=== PATIENT | female | born 1980 | race Caucasian/White ===

== ENCOUNTER 2018-05-29 20:46 | Emergency (ER) | payer BC, OTHER ==
[2018-05-29] MEDS ORDERED: NA CHLORIDE 0.9% 1,000 ML ONE (21:18)
[2018-05-29 21:39] LABS: Absolute Lymphocytes (CBC) 1.6 K/uL (0.7-4.9); Absolute Monocytes 0.5 K/uL (0.1-1.3); Absolute Neutrophil 6.1 K/uL (1.8-8.0); Basophils % 0.5 % (0-1.3); Eosinophils % 0.9 % (0-4.4); Hematocrit 37.3 % (36.0-45.0); Lymphocytes % 19.5 % (15.3-44.8); MCH 26.4 pg (27.0-35.0); MCV 80.4 fL (80-100); MPV 6.9 fL (7.6-11.3); Monocytes % 5.7 % (3.3-12.3); RBC Red Blood Cell Count 4.64 M/uL (3.86-4.86)
[2018-05-29 21:51] LABS: BUN Blood Urea Nitrogen 8 mg/dL (7-18); Bicarbonate 25 mmol/L (21-32); Glucose Level 161 mg/dL (74-106); Potassium 4.1 mmol/L (3.5-5.1); Sodium Level 139 mmol/L (136-145)
[2018-05-29 21:57] LABS: Urine Blood TRACE (NEG); Urine Glucose 2+ (NEG); Urine Protein NEGATIVE (NEG); Urine Specific Gravity 1.025 (1.005-1.030)
[2018-05-30 00:26] LABS: Urine Specific Gravity 1.025 (1.005-1.030)
[2018-05-30 00:30] LABS: Urine Bacteria >50 /HPF (<20); Urine Culture Reflex Order NOT NEEDED; Urine RBC <5 /HPF (NONE SEEN)
--- NOTE | 2018-05-30 01:43 | EDPHYS ---
Physician Documentation [facility] Name: Vivi Leslie Age: 37 yrs Sex: Female : 1980 Arrival Date: 05/29/2018 Time: 20:52 Bed 25 Private MD: ED Physician Rancho Little HPI: 05/29 21:09 This 37 yrs old Female presents to ER via EMS with unknown complaint. pkl 21:09 The patient presents with decreased mental status. Onset: The symptoms/episode pkl began/occurred just prior to arrival. Possible causes: low blood sugar. Associated signs and symptoms: Pertinent positives: diaphoresis. Patient is insulin dependent diabetic. Started on keto diet about 2 weeks ago without adjusting her insulin dosage.. 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 unrecalled lmp mg2 Historical: - Allergies: 05/29 21:07 Betadine; mg2 21:07 Phenergan; mg2 21:07 Macrodantin; mg2 - Home Meds: 21:07 atorvastatin 10 mg Oral tab 1 tab once daily [Active]; ferrous sulfate 325 mg (65 mg mg2 iron) Oral tab [Active]; gemfibrozil 600 mg Oral tab 1 tab 2 times per day [Active]; Lactulose Oral [Active]; lisinopril 2.5 mg Oral tab 1 tab once daily [Active]; metoprolol tartrate 25 mg Oral tab 1 tab once daily [Active]; Novolog 100 unit/mL Sub-Q soln [Active]; pantoprazole 40 mg Oral TbEC 1 tab once daily [Active]; Tradjenta 5 mg Oral tab 1 tab once daily [Active]; venlafaxine 75 mg Oral cp24 1 cap once daily [Active]; - PMHx: 21:07 Anemia; Diabetes - IDDM; Depression; Hyperlipidemia; GERD; scoliosis; Spinabifida; mg2 Hypertension; - PSHx: 21:07 back surgery; vp of global marketing shunt; bladder reroute; mg2 - Immunization history:: Flu vaccine is up to date. - Social history:: Smoking status: Patient/guardian denies using tobacco, Patient/guardian denies using alcohol, street drugs, IV drugs. - Ebola Screening: : No symptoms or risks identified at this time. ROS: 21:09 Eyes: Negative for injury, pain, redness, and discharge, ENT: Negative for injury, pkl pain, and discharge, Neck: Negative for injury, pain, and swelling, Cardiovascular: Negative for chest pain, palpitations, and edema, Respiratory: Negative for shortness of breath, cough, wheezing, and pleuritic chest pain, Abdomen/GI: Negative for abdominal pain, nausea, vomiting, diarrhea, and constipation, Back: Negative for injury and pain, : Negative for injury, bleeding, discharge, and swelling, MS/Extremity: Negative for injury and deformity. 21:09 Skin: Positive for diaphoresis. 21:09 Neuro: Positive for altered mental status. Exam: 21:09 Head/Face: Normocephalic, atraumatic. Eyes: Pupils equal round and reactive to light, pkl extra-ocular motions intact. Lids and lashes normal. Conjunctiva and sclera are non-icteric and not injected. Cornea within normal limits. Periorbital areas with no swelling, redness, or edema. ENT: Nares patent. No nasal discharge, no septal abnormalities noted. Tympanic membranes are normal and external auditory canals are clear. Oropharynx with no redness, swelling, or masses, exudates, or evidence of obstruction, uvula midline. Mucous membranes moist. Neck: Trachea midline, no thyromegaly or masses palpated, and no cervical lymphadenopathy. Supple, full range of motion without nuchal rigidity, or vertebral point tenderness. No Meningismus. Chest/axilla: Normal chest wall appearance and motion. Nontender with no deformity. No lesions are appreciated. Cardiovascular: Regular rate and rhythm with a normal S1 and S2. No gallops, murmurs, or rubs. Normal PMI, no JVD. No pulse deficits. Respiratory: Lungs have equal breath sounds bilaterally, clear to auscultation and percussion. No rales, rhonchi or wheezes noted. No increased work of breathing, no retractions or nasal flaring. Abdomen/GI: Soft, non-tender, with normal bowel sounds. No distension or tympany. No guarding or rebound. No evidence of tenderness throughout. Back: No spinal tenderness. No costovertebral tenderness. Full range of motion. Skin: Warm, dry with normal turgor. Normal color with no rashes, no lesions, and no evidence of cellulitis. MS/ Extremity: Pulses equal, no cyanosis. Neurovascular intact. Full, normal range of motion. Neuro: Awake and alert, GCS 15, oriented to person, place, time, and situation. Cranial nerves II-XII grossly intact. Motor strength 5/5 in all extremities. Sensory grossly intact. Cerebellar exam normal. Normal gait. Vital Signs: 21:08 BP 111 / 94; Pulse 85; Resp 18; Temp 94.6(O); Pulse Ox 100% on R/A; Weight 52.16 kg; mg2 Height 4 ft. 7 in. (139.70 cm); Pain 0/10; 22:24 BP 120 / 72; Pulse 88; Resp 18; Pulse Ox 100% on R/A; Pain 0/10; mg2 05/30 00:07 BP 122 / 81; Pulse 89; Resp 18; Temp 98.1; Pulse Ox 100% ; Pain 0/10; mg2 00:46 BP 103 / 68; Pulse 88; Resp 18; Pulse Ox 100% on R/A; Pain 0/10; mg2 01:33 BP 103 / 87; Pulse 89; Resp 18; Pulse Ox 100% on R/A; Pain 0/10; mg2 05/29 21:08 Body Mass Index 26.73 (52.16 kg, 139.70 cm) mg2 MDM: 05/29 20:53 Patient medically screened. pkl 05/30 01:42 Data reviewed: vital signs, nurses notes, lab test result(s). pkl 01:42 Patient medically screened. pkl 05/29 21:09 Order name: CBC with Diff; Complete Time: 22:54 pkl 05/29 21:09 Order name: Chem 7; Complete Time: 22:54 pkl 05/29 21:09 Order name: Hemoglobin A1c pkl 05/29 21:43 Order name: Urine Dipstick--Ancillary (enter results); Complete Time: 22:54 rg2 05/29 22:55 Order name: Urine Culture rg2 05/29 22:55 Order name: Urine Microscopic Only; Complete Time: 01:44 rg2 05/29 21:09 Order name: Accucheck Blood Glucose: q hourly; Complete Time: 21:12 pkl 05/29 21:15 Order name: EKG; Complete Time: 21:15 pkl 05/29 23:35 Order name: Urine --Ancillary (enter results); Complete Time: 01:44 rg2 Administered Medications: 05/29 21:23 Drug: NS 0.9% 1000 ml Route: IV; Rate: 100 ml/hr; Site: left forearm; mg2 05/30 02:03 Follow up: Response: No adverse reaction; IV Status: Completed infusion mg2 02:03 Drug: Bactrim (160 mg-800 mg (DS) 1 tablet Route: PO; mg2 02:08 Follow up: Response: No adverse reaction; Medication administered at discharge. mg2 Point of Care Testing: Blood Glucose: 05/29 21:23 Blood Glucose: 258 mg/dL; mg2 23:30 Blood Glucose: 85 mg/dL; mg2 05/30 00:30 Blood Glucose: 105 mg/dL; mg2 01:33 Blood Glucose: 133 mg/dL; mg2 Ranges: Critical Glucose Levels:Adult <50 mg/dl or >400 mg/dl <40 mg/dl or >180 mg/dl Disposition: 05/30/18 01:42 Discharged to Home. Impression: Hypoglycemia. Urinary tract infection. - Condition is Stable. - Prescriptions for Bactrim DS 800- 160 mg Oral Tablet - take 1 tablet by ORAL route every 12 hours for 7 days; 14 tablet. - Medication Reconciliation Form, Thank You Letter, Antibiotic Education, Prescription Opioid Use form. - Follow up: Private Physician; When: 1 - 2 days; Reason: Re-evaluation by your physician. - Problem is new. - Symptoms have improved. 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 Impression: Hypoglycemia. Condition is pkl Stable. Forms are Medication Reconciliation Form, Thank You Letter, Antibiotic Education, Prescription Opioid Use. Follow up: Private Physician; When: 1 - 2 days; Reason: Re-evaluation by your physician. Problem is new. Symptoms have improved. pkl 02:10 01:47 05/30/2018 01:42 Discharged to Home. Impression: Hypoglycemia. Urinary tract mg2 infection. Condition is Stable. Forms are Medication Reconciliation Form, Thank You Letter, Antibiotic Education, Prescription Opioid Use. Follow up: Private Physician; When: 1 - 2 days; Reason: Re-evaluation by your physician. Problem is new. Symptoms have improved. pkl
--- NOTE | 2018-05-30 01:43 | ER ---
Nurse's Notes [facility] Name: Vivi Leslie Age: 37 yrs Sex: Female : 1980 Arrival Date: 05/29/2018 Time: 20:52 Bed 25 Private MD: Diagnosis: Hypoglycemia. Urinary tract infection Presentation: 05/29 20:53 Presenting complaint: EMS states: she is on keto diet for the past 2 weeks and just mg2 this evening \T\ 1900H after dinner she was having slurred speech, facial drooping, cool clammy skin, BGL - 34 mg/dl and 200 ml of D10 water was infused and ugar went up to 363 mg/dl. \T\ 2032H last BGL was 299 mg/dl. Transition of care: patient was not received from another setting of care. Onset of symptoms was May 29, 2018. Risk Assessment: Do you want to hurt yourself or someone else? Patient reports no desire to harm self or others. Initial Sepsis Screen: Does the patient meet any 2 criteria? No. Patient's initial sepsis screen is negative. Does the patient have a suspected source of infection? No. Patient's initial sepsis screen is negative. Care prior to arrival: Medication(s) given: D10 water. 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/30 02:09 unrecalled lmp mg2 Historical: - Allergies: 05/29 21:07 Betadine; mg2 21:07 Phenergan; mg2 21:07 Macrodantin; mg2 - Home Meds: 21:07 atorvastatin 10 mg Oral tab 1 tab once daily [Active]; ferrous sulfate 325 mg (65 mg mg2 iron) Oral tab [Active]; gemfibrozil 600 mg Oral tab 1 tab 2 times per day [Active]; Lactulose Oral [Active]; lisinopril 2.5 mg Oral tab 1 tab once daily [Active]; metoprolol tartrate 25 mg Oral tab 1 tab once daily [Active]; Novolog 100 unit/mL Sub-Q soln [Active]; pantoprazole 40 mg Oral TbEC 1 tab once daily [Active]; Tradjenta 5 mg Oral tab 1 tab once daily [Active]; venlafaxine 75 mg Oral cp24 1 cap once daily [Active]; - PMHx: 21:07 Anemia; Diabetes - IDDM; Depression; Hyperlipidemia; GERD; scoliosis; Spinabifida; mg2 Hypertension; - PSHx: 21:07 back surgery; svp research and strategic analysis shunt; bladder reroute; mg2 - Immunization history:: Flu vaccine is up to date. - Social history:: Smoking status: Patient/guardian denies using tobacco, Patient/guardian denies using alcohol, street drugs, IV drugs. - Ebola Screening: : No symptoms or risks identified at this time. Screenin:09 Abuse screen: Denies threats or abuse. Denies injuries from another. Nutritional mg2 screening: on keto diet. Tuberculosis screening: No symptoms or risk factors identified. Fall Risk Secondary diagnosis (15 points) impaired mobility, IV access (20 points). Assessment: 21:10 General: Appears in no apparent distress. comfortable, Behavior is calm, cooperative. mg2 Pain: Denies pain. Neuro: Level of Consciousness is awake, alert, obeys commands, Oriented to person, place, time, situation. Cardiovascular: Capillary refill < 3 seconds Patient's skin is warm and dry. Respiratory: Airway is patent Respiratory effort is even, unlabored, Respiratory pattern is regular, symmetrical. GI: Parent/caregiver reports the patient having diarrhea. : No signs and/or symptoms were reported regarding the genitourinary system. EENT: No signs and/or symptoms were reported regarding the EENT system. Derm: Skin is intact, Skin is pink, warm \T\ dry. normal, Skin temperature is cool. Musculoskeletal: Circulation, motion, and sensation intact. Vital Signs: 21:08 BP 111 / 94; Pulse 85; Resp 18; Temp 94.6(O); Pulse Ox 100% on R/A; Weight 52.16 kg; mg2 Height 4 ft. 7 in. (139.70 cm); Pain 0/10; 22:24 BP 120 / 72; Pulse 88; Resp 18; Pulse Ox 100% on R/A; Pain 0/10; mg2 08/06 00:07 BP 122 / 81; Pulse 89; Resp 18; Temp 98.1; Pulse Ox 100% ; Pain 0/10; mg2 00:46 BP 103 / 68; Pulse 88; Resp 18; Pulse Ox 100% on R/A; Pain 0/10; mg2 01:33 BP 103 / 87; Pulse 89; Resp 18; Pulse Ox 100% on R/A; Pain 0/10; mg2 05/29 21:08 Body Mass Index 26.73 (52.16 kg, 139.70 cm) mg2 ED Course: 05/29 20:52 Patient arrived in ED. mg2 20:53 Rancho Little MD is Attending Physician. pkl 21:02 Triage completed. mg2 21:08 Arm band placed on. mg2 21:10 No provider procedures requiring assistance completed. Maintain EMS IV. Dressing mg2 intact. Good blood return noted. Site clean \T\ dry. Gauge \T\ site: 20 \T\ left forearm. 21:12 Ismael Cordon, TK is Primary Nurse. mg2 05/30 00:41 Patient has correct armband on for positive identification. Bed in low position. Door mg2 closed. Warm blanket given. 02:08 IV discontinued, intact, bleeding controlled, No redness/swelling at site. Pressure mg2 dressing applied. Administered Medications: 05/29 21:23 Drug: NS 0.9% 1000 ml Route: IV; Rate: 100 ml/hr; Site: left forearm; mg2 05/30 02:03 Follow up: Response: No adverse reaction; IV Status: Completed infusion mg2 02:03 Drug: Bactrim (160 mg-800 mg (DS) 1 tablet Route: PO; mg2 02:08 Follow up: Response: No adverse reaction; Medication administered at discharge. mg2 Point of Care Testing: Blood Glucose: 05/29 21:23 Blood Glucose: 258 mg/dL; mg2 23:30 Blood Glucose: 85 mg/dL; mg2 08 00:30 Blood Glucose: 105 mg/dL; mg2 01:33 Blood Glucose: 133 mg/dL; mg2 Ranges: Outcome: 01:42 Discharge ordered by . pkl 02:09 Discharged to home via wheelchair, with family. mg2 02:09 Condition: stable 02:09 Discharge instructions given to patient, family, Instructed on discharge instructions, follow up and referral plans. medication usage, Demonstrated understanding of instructions, follow-up care, medications, Prescriptions given X 1. 02:10 Patient left the ED. mg2 Addendum: 06/02/2018 13:42 Addendum: Culture Results: Positive urine culture. Bacteria is resistant to, has i w intermediate sensitivity, or is not tested against prescribed antibiotics. Report given to SARAH for further evaluation and then to decorating instructor for follow up with patient. Signatures: Rancho Little MD MD pkSarai Valenzuela RN RN iw Ismael Cordon RN RN mg2 Corrections: (The following items were deleted from the chart) 05/30 00:53 00:46 Pulse 88bpm; Resp 18bpm; Pulse Ox 100% RA; Pain 0/10; mg2 mg2
[2018-05-30] MEDS ORDERED: SMZ./TMP. 800/160 MG TABLET ONE (01:56)
--- NOTE | 2018-05-30 07:34 | EKG ---
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
== END 2018-05-30 02:10 | disposition home or self-care (01) ==
LOC: ER 20:46
DX: E10.649 Type 1 diabetes mellitus with hypoglycemia without coma (principal); N39.0 Urinary tract infection, site not specified; Z79.4 Long term (current) use of insulin; D64.9 Anemia, unspecified; E78.5 Hyperlipidemia, unspecified; K21.9 Gastro-esophageal reflux disease without esophagitis; M41.9 Scoliosis, unspecified; Q05.9 Spina bifida, unspecified; I10 Essential (primary) hypertension
CPT/HCPCS: 36415; 80048; 81003; 81015; 81025; 82962; 85025; 87077; 87086; 87088; 87186; 93005; 96360; 96361; 99284; J7030